=== PATIENT | female | born 1955 | race African-American/Black ===

== ENCOUNTER 2020-02-12 04:50 | Inpatient (IN) ==
[2020-02-12] MEDS ORDERED: NS 1,000 ML ONE (05:15)
[2020-02-12] MEDS ORDERED: NS 1,000 ML IV ONE ×3 (05:30→08:48)
[2020-02-12 05:40] LABS: BE -6.6 mmoll (-3.0-3.0); BLOOD TYPE ARTERIAL; HCO3-(ACT) 19.7 mmoll (20.0-26.0); METHB 0.9 % (0.0-1.5); O2(CT) 16.8 mL/dL (15.0-23.0); O2HB 95.2 % (95.0-99.0); PCO2(98.6) 34 mmHg (35-45); PO2(98.6) 85 mmHg (60-100); SAMPLE BLOOD; SAO2 98.1 % (95.0-100.0); THB 12.5 g/dL (11.5-17.4); pH(98.6) 7.34 (7.35-7.45)
[2020-02-12 05:42] LABS: ALLEN TEST NO; MODALITY ROOM AIR
[2020-02-12 05:58] LABS: BASO# 0.01 X1000 (0.0-0.2); BASO% 0.1 % (0.0-0.8); EOS# 0.03 X1000 (0.0-0.7); EOS% 0.4 % (0.0-10.0); HEMATOCRIT 36.2 % (37.0-47.0); HEMOGLOBIN 11.9 g/dL (12.0-16.0); IMM GRAN# 0.03 X1000 (0.0-0.04); IMM GRAN% 0.4 % (0.0-0.5); LYMPH# 1.23 X1000 (1.2-3.4); LYMPH% 16.8 % (20.5-51.1); MCH 27.9 PG (27-31); MCHC 32.9 g/dL (33-37); MCV 84.8 FL (81-99); MONO# 1.11 X1000 (0.11-0.59); MONO% 15.2 % (1.7-9.3); NEUT# 4.89 X1000 (1.4-6.5); NEUT% 67.1 % (42.2-75.2); PLT 259 X1000 (130-400); RBC 4.27 XMIL (4.2-5.4); RDW 12.8 % (11.5-14.5)
[2020-02-12] MEDS ORDERED: ZOSYN 4.5 GM in NS 100 ML IV ONE (06:06)
[2020-02-12] MEDS ORDERED: TYLENOL PO ONE (06:06)
--- NOTE | 2020-02-12 06:06 | PROVIDER DOCUMENTATION ---
HPI-General Adult - General Chief Complaint: Altered Mental Status Stated Complaint: VOMITING Time Seen by Provider: 02/12/20 05:27 Source: patient Allergies/Adverse Reactions: Patient Allergies Allergy/AdvReac Type Severity Reaction Status Date / Time No Known Allergies Allergy Verified 02/12/20 08:14 Home Medications: Home Medication List Medication Instructions Recorded Confirmed Last Taken Type Glipizide 1 tab PO BID 02/12/20 02/12/20 Unknown History Insulin Glargine,Hum.rec.anlog 13 units SUBQ DAILY 02/12/20 02/12/20 Unknown History [Lantus Solostar] Insulin Lispro [Humalog] 1 unit SUBQ DIRECTED 02/12/20 02/12/20 Unknown History Metformin HCl 1 tab PO BID 02/12/20 02/12/20 Unknown History - History of Present Illness -Gen Adult Nature of Presenting Problems: A 65 y/o female presents with c/o nausea and vomiting. The pt was being triaged, suddenly became weak and diaphoretic. The speech was slurred and had mild deviation of the mouth towards left. Her SBP was in low 90's. Pt denies any CP or SOB or palpitations or tingling or numbness or weakness or change in vision. The pt has had symptoms since 02/06/2020 and was seen in the ED on 02/07/2020. Review of Systems - Adult - REVIEW OF SYSTEMS - ADULT Constitutional: reports: fever Eyes: denies: no symptoms reported Ears, Nose, Mouth & Throat: denies: no symptoms reported Cardiovascular: denies: no symptoms reported Respiratory: denies: no symptoms reported Gastrointestinal: reports: see HPI Genitourinary: denies: no symptoms reported Musculoskeletal: denies: no symptoms reported Integumentary: denies: no symptoms reported Neurological: reports: loss of balance, slurred speech, other Psychiatric: denies: no symptoms reported Endocrine: denies: no symptoms reported Hematologic/Lymphatic: denies: no symptoms reported Allergic/Immunologic: denies: no symptoms reported Past History - Adult - PAST MEDICAL HISTORY-ADULT Review of Records: reports: Old Records Reviewed, Nursing Assessment Review, Medications Reviewed, Social history reviewed & non-contributory. Major Childhood Illnesses: reports: denies history Cardiovascular: reports: HTN, hyperlipidemia Respiratory: reports: denies history Gastrointestinal: reports: denies history Genitourinary: reports: denies history, kidney disease Neurological: reports: denies history Psychiatric: reports: anxiety Endocrine/Immune: reports: Diabetes - PRIOR SURGERIES/PROCEDURES Surgical/Procedure History: reports: BTL - FAMILY HISTORY Family History: reviewed, not pertinent Physical Exam-General - PHYSICAL EXAM-ADULT Initial Vital Signs Reviewed: Yes - CONSTITUTIONAL General Appearance: alert, moderate distress, slow to respond - EYES Eyes: PERRL/EOMI, anisocoria - HEAD, EARS, NOSE, MOUTH & THROAT HENMT: normocephalic/atraumatic. negative: moist mucous membranes, pharyngeal erythema - NECK Neck: supple - RESPIRATORY Respiratory: lungs clear, normal breath sounds, no respiratory distress, no accessory muscle use - CARDIOVASCULAR Cardiovascular: tachycardia, other (radial and DP pulses not palpable.) - GASTROINTESTINAL (ABDOMEN) Abdominal Exam: non tender, soft - MUSCULOSKELETAL Back Exam: normal inspection Extremity: no pedal edema Peripheral Pulses: radial (R): 0, radial (L): 0, carotid (R): 2+, carotid (L): 2+, femoral (R): 2+, femoral (L): 2+, dorsalis-pedis (R): 0, dorsalis-pedis (L): 0 - SKIN Integumentary: normal color, warm/dry - NEUROLOGIC 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 no deviation of tongue. generalized weakness in all extremeties, motor strength 5/5). negative: facial droop, motor weakness, sensory deficit - PSYCHIATRIC Psych/Mental Status: normal mood/affect, anxious Progress - PLAN OF CARE/RESULTS Progress/Plan/Lab Results: Vital Signs - 8 hr 02/12/20 04:51 02/12/20 05:04 Temperature 100.9 F H Pulse Rate 118 H 108 H Respiratory Rate 20 27 H Blood Pressure 92/31 O2 Sat by Pulse Oximetry 100 Laboratory Results - last 24 hr 02/12/20 02/12/20 05:22 05:32 WBC 7.30 RBC 4.27 Hgb 11.9 L Hct 36.2 L MCV 84.8 MCH 27.9 MCHC 32.9 L RDW Std Deviation 12.8 Plt Count 259 MPV 13.0 H Immature Gran % (Auto) 0.4 Neut % (Auto) 67.1 Lymph % (Auto) 16.8 L Florence % (Auto) 15.2 H Eos % (Auto) 0.4 Baso % (Auto) 0.1 Immature Gran # (Auto) 0.03 Neut # (Auto) 4.89 Lymph # (Auto) 1.23 Florence # (Auto) 1.11 H Eos # (Auto) 0.03 Baso # (Auto) 0.01 Specimen Type ARTERIAL Sample Site L BRACHIAL pH 7.34 L pCO2 34 L pO2 85 HCO3 19.7 L Base Excess -6.6 L Oxyhemoglobin 95.2 ABG O2 Sat (Calculated) 16.8 ABG O2 Saturation 98.1 ABG Carboxyhemoglobin 2.10 ABG Methemoglobin 0.9 Max Test NO A-a O2 Difference 22.0 Total Hemoglobin 12.5 Lactate 2.30 H Blood Gas Modality ROOM AIR FiO2 % 21.0 Orders Category Date Time Status Mendoza Cath Insertion ORDERED Care 02/12/20 05:30 Active IV Insertion ORDERED Care 02/12/20 05:30 Completed Intake and Output-Strict ORDERED Care 02/12/20 05:30 Active NEWS Score 2-4:Order NEWS Lactate Series NOW Care 02/12/20 06:03 Active Notify Physician ORDERED Care 02/12/20 05:30 Active Notify Physician if: ORDERED Care 02/12/20 05:30 Active Saline Loc NOW Care 02/12/20 05:32 Active Sepsis Bolus Completion ORDERED Care 02/12/20 05:30 Active Vital Signs Order Q30M Care 02/12/20 05:30 Active CHEST-PORTABLE [RAD] Stat Exams 02/12/20 05:[address] HEAD W/O CONTRAST [CT] Stat Exams 02/12/20 05:33 Taken KUB ABDOMEN [RAD] Stat Exams 02/12/20 06:05 Ordered ABG [RESP] Routine Lab 02/12/20 05:32 Completed BLOOD CULTURE [BLDCUL] Stat Lab 02/12/20 05:45 Ordered CBC WITH DIFF [HEME] Stat Lab 02/12/20 05:22 Completed COMPREHENSIVE METABOLIC PANEL [CHEM] Stat Lab 02/12/20 05:45 Ordered PRO B-NATRIURETIC PEPTIDE Stat Lab 02/12/20 05:45 Ordered TYPE & SCREEN [BBK] Stat Lab 02/12/20 05:46 Ordered UA NIMS W/REFLEX CULT [URINALYSIS] Stat Lab 02/12/20 05:42 Ordered 0.9% Sodium Chloride Inj [Ns] 1,000 ml Med 02/12/20 05:15 Discontinued .ROUTE As directed 0.9% Sodium Chloride Inj [Ns] 1,000 ml Med 02/12/20 05:30 Active IV 999 mls/hr Acetaminophen [Tylenol] Med 02/12/20 06:06 Once 1,000 mg PO NOW ONE Piperacillin/Tazobactam [Zosyn] 4.5 gm Med 02/12/20 06:06 Active 0.9% Sodium Chloride Inj [Ns] 100 ml IV NOW Pulse Oximetry Stat Oth 02/12/20 05:32 Active Result Diagrams: 02/12/20 05:22 02/12/20 05:22 - CHANGE OF SHIFT REPORT (ED Provider) 1 Report Given and Care Transferred to:: Dr Sarkar Time of Transfer: 07:20 Items Pending: Labs Departure - Departure Date of Disposition Decision: 02/12/20 Time of Disposition Decision: 13:06 DIAGNOSIS: Dehydration, severe Disposition: ADMITTED INPATIENT 09 Certified Medical Emergency: Emergent Condition: Serious - Critical Care Note This patient required my direct & personal management of CC.: Yes Total Time (mins): 45 Critical Care Statement: This patient required my direct personal management to treat or rule out processes, the absence of which, could potentiallly result in sudden, clinically significant life or limb threatening deterioration. Attestation - Physician/ CANDIDO Attestation Patient care was provided by Advanced Practice Provider:: No The physician spent face to face time with patient:: Yes Advanced Practice Provider documentation review:: Supervising physician onsite and consulted in the evaluation and care of this patient. The physician did have a face to face encounter with the patient.
[2020-02-12 06:41] LABS: ALBUMIN 3.8 g/dL (3.5-5.0); CALCIUM 9.2 mg/dL (8.8-10.2); CREATININE 4.5 mg/dL (0.5-0.9); POTASSIUM 4.8 mmol/L (3.5-5.1); TOTAL BILIRUBIN 0.3 mg/dL (0.20-1.00); TOTAL PROTEIN 7.4 g/dL (6.3-8.3)
[2020-02-12] MEDS ORDERED: HUMULIN R (PARKWAY) SUBQ ONE (07:09)
--- NOTE | 2020-02-12 07:15 | Diag Imaging Result Doc PS360 ---
CT HEAD W/O CONTRAST - 02/12/2020 INDICATION: altered mental status COMPARISON: None FINDINGS: There is advanced diffuse cerebral atrophy. There is moderate periventricular white matter chronic microvascular ischemia. No intracranial mass or hemorrhage. The skull is intact. The sinuses, mastoids, and middle ears are clear. IMPRESSION: Chronic appearing ischemic changes. No acute process. This exam was performed using automated exposure control, adjustment of mA or kV according to patient size, and/or use of iterative reconstruction technique Electronically signed by Polo Louis 02/12/2020 7:13 AM
[2020-02-12] MEDS ORDERED: ZOFRAN ONE (07:18)
[2020-02-12] MEDS ORDERED: ZOFRAN IV ONE (07:22)
[2020-02-12 07:57] LABS: INFLUENZA A NEGATIVE (NEGATIVE); INFLUENZA B NEGATIVE (NEGATIVE)
[2020-02-12 08:39] LABS: MAGNESIUM 1.8 mg/dL (1.5-2.7); PHOSPHORUS 5.3 mg/dL (2.7-4.5)
--- NOTE | 2020-02-12 08:43 | Diag Imaging Result Doc PS360 ---
KUB ABDOMEN - 02/12/2020 INDICATION: constipation c flank pain x 4 days COMPARISON: None FINDINGS: There is a nonobstructive bowel gas pattern. No free air or abdominal calcifications. Average quantity of stool. IMPRESSION: No acute disease. Electronically signed by Polo Louis 02/12/2020 8:41 AM
--- NOTE | 2020-02-12 08:44 | Diag Imaging Result Doc PS360 ---
CHEST-PORTABLE - 02/12/2020 INDICATION: cough COMPARISON: None FINDINGS: The lungs are normally expanded and clear. Heart size and mediastinal contours are normal. No pneumothorax or pleural effusion. IMPRESSION: Negative exam. Electronically signed by Polo Louis 02/12/2020 8:41 AM
[2020-02-12 08:45] LABS: INR 1.11; PROTIME 14.9 Seconds (11.0-16.0)
[2020-02-12 08:46] LABS: PTT 29.3 Seconds (22.3-41.8)
[2020-02-12] MEDS ORDERED: ZOFRAN IV PRN (09:16)
[2020-02-12] MEDS ORDERED: TYLENOL PO PRN (09:16)
[2020-02-12] MEDS ORDERED: HUMULIN R IV ONE ×2 (09:21→15:56)
[2020-02-12] MEDS ORDERED: LANTUS INSULIN SUBQ SCH (09:30)
[2020-02-12] MEDS ORDERED: HUMULIN R (PARKWAY) ONE (09:32)
[2020-02-12 10:00] LABS: HEMOGLOBIN A1C 8.4 % (4.8-6.0)
--- NOTE | 2020-02-12 10:06 | EKG Report ---
Test Performed on : 02/12/2020 06:35:29 AM Test Reason : AMS Blood Pressure : / mmHG Vent. Rate : 099 BPM Atrial Rate : 099 BPM P-R Int : 130 ms QRS Dur : 080 ms QT Int : 376 ms P-R-T Axes : 042 057 070 degrees QTc Int : 482 ms Normal sinus rhythm. Nonspecific T wave abnormality Abnormal ECG No previous ECGs available Unconfirmed Result
--- NOTE | 2020-02-12 10:25 | HISTORY AND PHYSICAL ---
PRIMARY CARE PROVIDER: None. CHIEF COMPLAINT: Nausea, vomiting, and dizziness. HISTORY OF PRESENT ILLNESS: Ms. Szymanski is a 65-year-old, female, who carries a past medical history of diabetes mellitus, hypertension, and hyperlipidemia, who is noted to take lisinopril and metformin, who was brought to the ED by her niece with complaints of nausea and vomiting. She was seen in the ED on 02/07/2020 and diagnosed with food poisoning, I believe from the [facility]. She reports since that time, her diarrhea has pretty much subsided. However, she has continued to have nausea and vomiting every day, and has continued to take her lisinopril and metformin. When she came in on 02/07/2020, her kidney function was completely normal. She now has an acute kidney injury with a BUN of 79 and a creatinine of 4.5. She was also hyperglycemic in the 460s, hypotensive anywhere from 60s to low 100s. She initially screened in for lactate positive, was treated per the sepsis protocol, given 2 L of fluid, and started on IV Zosyn. Suspected DKA; however, her acetone level is negative. She was given some subcu regular insulin, brought her blood sugars down to the 360s. We will do 5 of IV regular insulin now. Blood pressures still are on the low side, and is currently in Trendelenburg to keep her blood pressures up even after fluid resuscitation. We will be moving her to [facility] ICU for possible pressors. Will set her up to have a renal ultrasound and check renal studies. REVIEW OF SYSTEMS: Complete and negative, except for those mentioned in the HPI. She does report continued nausea and vomiting since 02/07/2020, but no real fever, chills, chest pain, shortness of breath. There was some associated dizziness with her hypotension. I believe initially, they stated she had some slurred speech, and did a head CT, which they contributed to her hypotension. She has had no numbness, tingling, or overt weakness on one side or the other. She was complaining of abdominal pain upon palpitation when first brought into the ED. However, I mashed on her abdomen well, and could not reproduce any tenderness. She reports no more diarrhea since 02/07/2020, and is only able to have a small BM now. SOCIAL HISTORY: She is a . She lives alone. No alcohol, tobacco, or illicit drug use. She does have family who checks on her. PAST MEDICAL HISTORY: Hypertension, diabetes mellitus, hyperlipidemia. PAST SURGICAL HISTORY: Tubal. ALLERGIES: No known drug allergies. HOME MEDICATIONS: Lisinopril and metformin which will be held, glipizide, Humalog per home sliding scale, Lantus, and recently discharged on Lomotil and Compazine. PHYSICAL EXAMINATION: VITAL SIGNS: Temperature was initially 100.9, now down to 97.8, heart rate has been 110s to low 90s, respirations 25, blood pressures have been documented anywhere from 60s to low 100s/30s to 80s, O2 saturation is 98% on 2 L nasal cannula. The patient is currently in Trendelenburg, and blood pressure is still reading 90s/50s. GENERAL: Ms. Szymanski is a 65-year-old, female, who is in Trendelenburg position in the ED stretcher, but in no acute distress. HEENT: Atraumatic, normocephalic. PERRL. NECK: Supple. Trachea midline. CARDIOVASCULAR: S1, S2 appreciated. No murmurs, gallops, rubs noted. RESPIRATORY: Lung sounds are clear bilaterally. GASTROINTESTINAL: Soft, nontender upon palpitation. Positive bowel sounds. LOWER EXTREMITIES: Negative for edema. Bilateral pedal pulses are palpable. No signs of clubbing, cyanosis. SKIN: Warm, dry, and intact. NEUROLOGIC: She is awake. She is alert. She is oriented. She reports that she is feeling much better than when she came in. However, she does believe that she came to the ED over 2 weeks ago, and it was just days ago. She also reported no appetite and a lower fluid intake, but she states that she loves water and drinks it excessively as well, so unsure if she is really back at her baseline. No family currently allowed at the bedside to confer with that. She did have a head CT when she came in that was negative. Did not appreciate any focal deficits other than that. DIAGNOSTIC DATA: Head CT showed chronic ischemic changes. No acute processes. Abdominal x-ray: No acute disease. Chest x-ray: Negative exam. LABORATORY DATA: White count 7, hemoglobin and hematocrit are 11 and 36, platelet count is 259,000. Sodium 126, potassium 4.8, bicarb is 17, anion gap 26, BUN 79, creatinine 4.5, blood glucose is 463, down to 360s. Troponin is 49, not complaining of any chest pain. Acetone level was negative. Initial plasma lactate was 3; recheck after fluids is 1.1. Negative for flu A and B or group A strep. ASSESSMENT AND PLAN: 1. Sepsis rule in, possibly secondary from underlying gastrointestinal issues from food poisoning. She was aggressively intravenously hydrated with 2 liters of fluid, and started on Zosyn. We will continue Zosyn; however, we will renally dose her. Continue to trend her lactate series. Have Levophed ordered for her hypotension. Continue aggressive intravenous hydration. 2. Febrile upon arrival. Subsided with oral Tylenol. 3. Diabetes mellitus with hyperglycemia. She was given subcutaneous regular insulin. Will do also 5 units intravenously now. It only brought her blood glucose down to the 360s. Again, continue with aggressive intravenous hydration. 4. Mild hypernatremia secondary to dehydration. Will continue with intravenous fluids. 5. Acute kidney injury. The patient had normal renal function on 02/07/2020. Will continue with aggressive intravenous hydration. Will check a renal ultrasound. We will hold her lisinopril and metformin that the patient had continued to take on a daily basis. 6. High anion gap metabolic acidosis. Will continue with intravenous fluids. 7. Elevated troponin in the setting of acute renal failure. The patient complains of no chest pain, but we will do an electrocardiogram as one is not documented. 8. Hypertension in the setting of hypotension. Will hold any antihypertensives. Further recommendations to follow physician evaluation, laboratory and diagnostic data. Dictated by ANCA Marin for Geovanny Sellers MD cc: Geovanny Sellers MD
[2020-02-12] MEDS: LEVOPHED 8 MG in D5 1/2 NS 250 ML IV SCH ×2 (10:35→17:46)
[2020-02-12] MEDS ORDERED: HUMALOG (PARKWAY) SUBQ SCH (11:00)
[2020-02-12 15:41] LABS: URINE SOURCE CATH
--- NOTE | 2020-02-12 15:42 | Diag Imaging Result Doc PS360 ---
US RENAL 2 (RETROPER) COMPLETE - 02/12/2020 INDICATION: RASHI TECHNIQUE: COMPARISON: None FINDINGS: There is a lot of bowel gas causing some artifact. There is probably a cyst at the upper pole of the right kidney. The left kidney is normal. No evidence of hydronephrosis. The right kidney measures 8.2 x 3.8 x 4 cm. The left kidney measures 9.4 x 5.5 x 5.9 cm. Urinary bladder is decompressed by a Mendoza catheter. IMPRESSION: No acute abnormality. Electronically signed by Polo Louis 02/12/2020 3:39 PM
[2020-02-12] MEDS ORDERED: FLEET ENEMA PR ONE (15:45)
[2020-02-12 15:50] LABS: BILIRUBIN URINE SMALL (NEGATIVE); BLOOD URINE MODERATE (NEGATIVE); COLOR YELLOW; GLUCOSE URINE NEGATIVE (NEGATIVE); KETONE URINE NEGATIVE (NEGATIVE); LEUKOCYTES URINE SMALL (NEGATIVE); NITRITE URINE NEGATIVE (NEGATIVE); PH URINE 5.5; PROTEIN URINE 100 mg/dL (NEGATIVE); SP GRAVITY URINE 1.025; TURBIDITY URINE HAZY (CLEAR); UR EPITHELIAL CELLS <10 /HPF (<10); URINE BACTERIA NEGATIVE /HPF; URINE WBC 20-40 /HPF (<10); UROBILINOGEN URINE NORMAL (NORMAL)
[2020-02-12] MEDS ORDERED: MAGNESIUM SULFATE 2 GM/S.W.I. 2 GM/50 ML IVPB IV PRN (15:56)
[2020-02-12] MEDS ORDERED: POTASSIUM CHLORIDE 20 MEQ/SWI 20 MEQ/100 ML IVPB IV PRN (15:56)
[2020-02-12] MEDS ORDERED: POTASSIUM CHLORIDE 40 MEQ/SWI 40 MEQ/100 ML IVPB IV PRN (15:56)
[2020-02-12] MEDS ORDERED: D50W SYRINGE IV PRN (15:56)
[2020-02-12] MEDS ORDERED: SODIUM BICARBONATE 8.4% 100 MEQ in STERILE WATER INJ. 500 ML IV PRN (15:56)
[2020-02-12] MEDS ORDERED: SODIUM PHOSPHATE 30 MMOL in D5W 250 ML IV PRN (15:56)
[2020-02-12] MEDS ORDERED: HUMULIN R 100 UNIT in NS 100 ML IV SCH (16:00)
[2020-02-12 16:03] LABS: URINE CASTS NONE SEEN; URINE CRYSTALS NONE SEEN; URINE SMALL ROUND CELLS TRANS PRESENT; URINE YEAST NONE SEEN
[2020-02-12] MEDS: D5 1/2 NS 1,000 ML IV PRN (16:10)
[2020-02-12 16:34] LABS: CALCIUM 8.7 mg/dL (8.8-10.2); CREATININE 4.5 mg/dL (0.5-0.9); MAGNESIUM 1.8 mg/dL (1.5-2.7); PHOSPHORUS 5.5 mg/dL (2.7-4.5); POTASSIUM 5.3 mmol/L (3.5-5.1)
[2020-02-12 16:37] LABS: ALLEN TEST YES; BE -9.9 mmoll (-3.0-3.0); BLOOD TYPE ARTERIAL; HCO3-(ACT) 17.2 mmoll (20.0-26.0); METHB 1.3 % (0.0-1.5); O2(CT) 15.4 mL/dL (15.0-23.0); O2HB 95.9 % (95.0-99.0); PCO2(98.6) 29 mmHg (35-45); PO2(98.6) 92 mmHg (60-100); SAMPLE BLOOD; SAO2 98.4 % (95.0-100.0); THB 11.3 g/dL (11.5-17.4); pH(98.6) 7.32 (7.35-7.45)
[2020-02-12 16:38] LABS: MODALITY CANNULA
--- NOTE | 2020-02-12 16:40 | Diag Imaging Result Doc PS360 ---
CHEST-PORTABLE - 02/12/2020 at 4:31 PM INDICATION: central line placement COMPARISON: 6:07 AM FINDINGS: There is a left subclavian central line in good position. The catheter tip is at the cavoatrial junction. The lungs remain grossly clear. IMPRESSION: Good left central line placement. Electronically signed by Polo Louis 02/12/2020 4:38 PM
--- NOTE | 2020-02-12 17:01 | OPERATIVE NOTE ---
PROCEDURE DATE: 02/12/2020 PREOPERATIVE DIAGNOSES: 1. Diabetic ketoacidosis. 2. Poor peripheral access. POSTOPERATIVE DIAGNOSES: 1. Diabetic ketoacidosis. 2. Poor peripheral access. PROCEDURE PERFORMED: Left subclavian central line placement. ANESTHESIA: Local. INDICATIONS: This female presented with diabetic ketoacidosis. She has poor peripheral access. She has an external jugular vein. Her glucose 400. She is on Levophed with ongoing resuscitation, lactic acidosis, urinary tract infection, and needs better access. DESCRIPTION OF PROCEDURE: Risks, benefits, alternatives were discussed with the patient and she consented to the procedure. Seen preoperatively and surgical site was confirmed. She was placed in the supine position and then in Trendelenburg. Her neck and chest prepped with chlorhexidine solution and draped in usual fashion. After time-out, using bony landmarks, we injected local anesthetic and an 18-gauge needle was advanced and the subclavian vein was accessed on the first pass. Dark, nonpulsatile venous blood was noted on return. The wire threaded easily. It was confirmed to be venous in nature. A skin matthieu was made. The tract was dilated and a pre-flushed triple-lumen 7-Hungarian catheter was advanced and secured with silk suture. All ports withdrew blood and flushed without resistance. A dressing was applied. There was no complication. Stat chest x-ray was ordered. cc: Jacky Valladares MD
[2020-02-12] MEDS: 1/2 NS 1,000 ML IV SCH (17:36)
[2020-02-12] MEDS: ZOSYN 2.25 GM in NS 50 ML IV SCH ×3 (17:41→22:01)
--- NOTE | 2020-02-12 17:58 | HISTORY AND PHYSICAL ---
ADDENDUM: Patient seen and examined by myself. Full note dictated and discussed with nurse practitioner. Patient notes that she has been nauseated, vomiting for the past week or so. She has had great decreased oral intake. Has continued to take her lisinopril and metformin. She has had very little urine output while she has been in the hospital. She initially presented with altered mental status, although this improved with fluid boluses. We are going to admit the patient to the hospital, transfer her to [facility], place her in the unit. Continue to follow her blood pressures. Place her on antibiotics for sepsis. We will hold her lisinopril due to her low blood pressure as well as her acute renal failure. Further orders as needed. cc: Geovanny Sellers MD
[2020-02-12 19:51] LABS: CALCIUM 7.9 mg/dL (8.8-10.2); CREATININE 4.2 mg/dL (0.5-0.9); MAGNESIUM 1.6 mg/dL (1.5-2.7); PHOSPHORUS 4.6 mg/dL (2.7-4.5); POTASSIUM 4.2 mmol/L (3.5-5.1)
[2020-02-12 20:01] LABS: ALLEN TEST YES; BE -8.1 mmoll (-3.0-3.0); BLOOD TYPE ARTERIAL; HCO3-(ACT) 18.6 mmoll (20.0-26.0); METHB 0.7 % (0.0-1.5); O2(CT) 14.8 mL/dL (15.0-23.0); O2HB 97.5 % (95.0-99.0); PCO2(98.6) 31 mmHg (35-45); PO2(98.6) 105 mmHg (60-100); SAMPLE BLOOD; SAO2 100.3 % (95.0-100.0); THB 10.7 g/dL (11.5-17.4); pH(98.6) 7.34 (7.35-7.45)
[2020-02-12 20:02] LABS: MODALITY ROOM AIR
[2020-02-12] MEDS: DULCOLAX PR SCH (21:14)
[2020-02-13] MEDS: 1/2 NS 1,000 ML IV SCH ×4 (00:19→19:02)
[2020-02-13 00:33] LABS: ALLEN TEST YES; BE -7.2 mmoll (-3.0-3.0); BLOOD TYPE ARTERIAL; HCO3-(ACT) 19.2 mmoll (20.0-26.0); METHB 1.4 % (0.0-1.5); O2(CT) 14.4 mL/dL (15.0-23.0); O2HB 93.5 % (95.0-99.0); PCO2(98.6) 34 mmHg (35-45); PO2(98.6) 71 mmHg (60-100); SAMPLE BLOOD; SAO2 96.4 % (95.0-100.0); THB 10.9 g/dL (11.5-17.4); pH(98.6) 7.33 (7.35-7.45)
[2020-02-13 00:34] LABS: MODALITY ROOM AIR
[2020-02-13 00:43] LABS: MAGNESIUM 2.6 mg/dL (1.5-2.7); PHOSPHORUS 3.8 mg/dL (2.7-4.5)
[2020-02-13] MEDS: D5 1/2 NS 1,000 ML IV PRN ×2 (00:43→08:10)
[2020-02-13 00:48] LABS: CREATININE 4.1 mg/dL (0.5-0.9); POTASSIUM 4.3 mmol/L (3.5-5.1)
[2020-02-13 04:32] LABS: ALLEN TEST YES; BE -7.5 mmoll (-3.0-3.0); BLOOD TYPE ARTERIAL; HCO3-(ACT) 19.1 mmoll (20.0-26.0); METHB 1.1 % (0.0-1.5); O2(CT) 10.7 mL/dL (15.0-23.0); O2HB 93.8 % (95.0-99.0); PCO2(98.6) 36 mmHg (35-45); PO2(98.6) 70 mmHg (60-100); SAMPLE BLOOD; SAO2 96.1 % (95.0-100.0); pH(98.6) 7.31 (7.35-7.45)
[2020-02-13 04:33] LABS: MODALITY ROOM AIR
[2020-02-13 05:14] LABS: ALB/GLOB RATIO 0.9; ALBUMIN 2.8 g/dL (3.5-5.0); MAGNESIUM 2.4 mg/dL (1.5-2.7); PHOSPHORUS 3.6 mg/dL (2.7-4.5); POTASSIUM 4.3 mmol/L (3.5-5.1); TOTAL BILIRUBIN 0.2 mg/dL (0.20-1.00); TOTAL PROTEIN 5.8 g/dL (6.3-8.3)
[2020-02-13 05:15] LABS: BASO# 0.03 X1000 (0.0-0.2); BASO% 0.4 % (0.0-0.8); EOS# 0.16 X1000 (0.0-0.7); EOS% 2.3 % (0.0-10.0); HEMATOCRIT 31.7 % (37.0-47.0); HEMOGLOBIN 10.3 g/dL (12.0-16.0); IMM GRAN# 0.11 X1000 (0.0-0.04); IMM GRAN% 1.6 % (0.0-0.5); LYMPH# 1.23 X1000 (1.2-3.4); LYMPH% 17.5 % (20.5-51.1); MCH 27.6 PG (27-31); MCHC 32.5 g/dL (33-37); MONO# 1.23 X1000 (0.11-0.59); MONO% 17.5 % (1.7-9.3); MPV 12.1 FL (7.4-10.4); NEUT# 4.28 X1000 (1.4-6.5); NEUT% 60.7 % (42.2-75.2); PLT 231 X1000 (130-400); RBC 3.73 XMIL (4.2-5.4); RDW 13.2 % (11.5-14.5); WBC 7.04 X1000 (4.8-10.8)
[2020-02-13 05:29] LABS: BANDS 2 % (0-1); EOS 2 % (1-10); LYMPHS 18 % (21-51); MONO 10 % (1-9); NRBC 1 % (0-0); SEGS 46 % (42-75)
[2020-02-13] MEDS: ZOSYN 2.25 GM in NS 50 ML IV SCH ×2 (06:23→14:44)
--- NOTE | 2020-02-13 06:42 | Diag Imaging Result Doc PS360 ---
CHEST-PORTABLE - 02/13/2020 INDICATION: DKA COMPARISON: 02/12/2020 FINDINGS: Stable left central line. There is new, moderately extensive bilateral perihilar infiltrate. This is mainly interstitial in appearance. Heart size remains normal. Lung volumes are low. IMPRESSION: Bilateral central infiltrates compatible with pulmonary edema or pneumonia. Electronically signed by Polo Louis 02/13/2020 6:39 AM
--- NOTE | 2020-02-13 07:08 | EKG Report ---
Test Performed on : 02/13/2020 06:48:40 AM Test Reason : follow up Blood Pressure : / mmHG Vent. Rate : 100 BPM Atrial Rate : 100 BPM P-R Int : 140 ms QRS Dur : 080 ms QT Int : 334 ms P-R-T Axes : 047 055 030 degrees QTc Int : 430 ms Normal sinus rhythm. Nonspecific T wave abnormality Abnormal ECG When compared with ECG of 12-FEB-2020 06:35, (Unconfirmed) Nonspecific T wave abnormality now evident in Inferior leads Confirmed by Jose Luis Deng MD ([id number]) on 02/15/2020 3:20:50 PM
[2020-02-13] MEDS ORDERED: VANCOMYCIN IV PER PHARMACY MISC SCH (07:15)
--- NOTE | 2020-02-13 07:47 | Diag Imaging Result Doc PS360 ---
EXAM: ABDOMEN FLAT/UPRIGHT 02/13/2020 HISTORY: pain TECHNIQUE: Flat and upright abdomen COMMENT: There is some colonic gas. There are at least two distended loops of small bowel seen on the right side of the abdomen. This was also apparently present on the previous study of 02/12/2020. The stomach is not distended and there is no evidence organomegaly or mass. IMPRESSION: Ileus versus partial small bowel obstruction. Electronically signed by Howard Chacon 02/13/2020 7:45 AM
[2020-02-13] MEDS: ZYVOX 600 MG/D5W 600 MG/300 ML IVPB IV SCH ×2 (08:07→20:04)
[2020-02-13 08:08] LABS: MAGNESIUM 2.4 mg/dL (1.5-2.7); PHOSPHORUS 3.5 mg/dL (2.7-4.5)
[2020-02-13] MEDS: DULCOLAX PR SCH ×2 (08:10→20:04)
[2020-02-13 08:15] LABS: CALCIUM 8.1 mg/dL (8.8-10.2); CREATININE 3.4 mg/dL (0.5-0.9); POTASSIUM 4.5 mmol/L (3.5-5.1)
[2020-02-13 09:19] LABS: URINE SOURCE CATH
[2020-02-13 09:38] LABS: BILIRUBIN URINE NEGATIVE (NEGATIVE); BLOOD URINE SMALL (NEGATIVE); COLOR YELLOW; GLUCOSE URINE NEGATIVE (NEGATIVE); KETONE URINE NEGATIVE (NEGATIVE); LEUKOCYTES URINE NEGATIVE (NEGATIVE); NITRITE URINE NEGATIVE (NEGATIVE); PROTEIN URINE 30 mg/dL (NEGATIVE); SP GRAVITY URINE 1.011; TURBIDITY URINE CLEAR (CLEAR); UROBILINOGEN URINE NORMAL (NORMAL)
[2020-02-13 09:41] LABS: UR CREAT RANDOM 48.4 mg/dL (11-20); UR PROT RANDOM 28.7 mg/dL
[2020-02-13 09:43] LABS: UR EPITHELIAL CELLS <10 /HPF (<10); URINE BACTERIA NEGATIVE /HPF; URINE WBC <10 /HPF (<10)
[2020-02-13 09:51] LABS: URINE YEAST NONE SEEN
[2020-02-13] MEDS ORDERED: LANTUS INSULIN SUBQ SCH (11:10)
--- NOTE | 2020-02-13 11:18 | PROGRESS NOTE ---
DATE: 02/13/2020 SUBJECTIVE: The patient seems to be feeling better compared with yesterday, but her anion gap is still elevated. Her kidney function is still elevated as well, but seems to be improving a little bit; she seems to be making a little bit more of urine. I ordered a renal ultrasound, as well as urinalysis, and I have requested an evaluation by Urology Department. I will continue with the DKA protocol. Abdomen x-ray showed ileus versus partial small bowel obstruction. She had a bowel movement yesterday. I gave her an enema today, and also I started this patient on suppositories twice a day. I will continue with that. She does have some bowel sounds, but decreased. OBJECTIVE: Vital signs: Temperature 98.0 degrees, pulse 95, respiratory rate 25, blood pressure 111/63, oxygen saturation 97% on room air. HEENT: Head normocephalic, no trauma. PERRLA. Neck: Neck is supple. No JVD. No masses. Central trachea. Chest: She does have some rhonchi at the bases, no crackles, no rales. Abdomen: Soft, protuberant, distended. Decreased bowel sounds, but present. Extremities: No edema, no clubbing, no cyanosis. Neurological examination: The patient is awake, alert. She is answering my questions. LABORATORY: WBC 7, hemoglobin 10.3, hematocrit 31.7, platelet 231. Sodium 133, potassium 4.3, chloride 100, bicarbonate 16. BUN 73, calcium 8, phosphorus 3.6, magnesium 2.4, albumin 2.8. ASSESSMENT AND PLAN: 1. Sepsis, likely secondary to bilateral pneumonia and/or underlying gastrointestinal infection. This patient has been constipated. She may have an ileus versus partial bowel obstruction. She had a bowel movement yesterday after giving her an enema. We will continue with suppositories twice a day; she is still on vasopressors. Continue with broad-spectrum antibiotics. 2. Bilateral lower lobe pneumonia. Continue with broad-spectrum antibiotics. 3. Type 2 diabetes with a hemoglobin A1c of 8.4. I will continue with diabetic ketoacidosis protocol at this moment. 4. Diabetic ketoacidosis. I do believe this is getting better, but the anion gap is still elevated. Her acetone level was negative yesterday, though. So I will go ahead and stop the insulin drip. I will put her on a sliding scale insulin and pattern of blood sugar. She is not able to eat, so I will monitor this closely. 5. Hyponatremia, much better. Initially she was admitted with a blood sugar of 126 and now is 135. It could be related to dehydration and pseudohyponatremia due to elevated blood sugar. 6. Partial small bowel obstruction versus ileus. She does have mild bowel sounds, and she had a bowel movement yesterday. I will continue with the same management and I will keep an eye on her. She has been having vomiting, though. 7. Anion gap metabolic acidosis. Continue with intravenous fluids. 8. Hypertension. Actually, this patient has been hypotensive and she has been on vasopressors. cc: José Antonio Cote MD
[2020-02-13] MEDS: HUMULIN R SUBQ SCH ×2 (18:00→20:04)
--- NOTE | 2020-02-13 18:05 | GENERAL SURGERY CONSULTATION ---
DATE: 02/13/2020 REASON FOR CONSULTATION: Possible bowel obstruction. HISTORY OF PRESENT ILLNESS: This is a 65-year-old female known to me who presented with diabetic ketoacidosis. She has had a history of this. I placed a central line in her yesterday for IV access. I now formally consulted today to make recommendations in regard to a possible bowel obstruction. She did present with nausea and vomiting, which has been persistent over the last couple of days. She has had some constipation. She initially attributed this to food poisoning from the [facility]. She was hydrated and started on the diabetic ketoacidosis protocol yesterday and has felt some better over the course of the day today. She had several bowel movements this morning. PAST MEDICAL HISTORY: Hypertension, diabetes poorly controlled, hyperlipidemia. SURGICAL HISTORY: She has had a tubal ligation but no other abdominal surgery. SOCIAL HISTORY: No tobacco, alcohol, or drugs. She is a but does have attentive family. REVIEW OF SYSTEMS: Ten-point review performed and negative, other than what is mentioned in the HPI. MEDICATIONS: Reviewed. PHYSICAL EXAMINATION: Vital signs: She is currently afebrile. Heart rate in the low 100s. Blood pressure 119/69. General: She is alert in no acute distress. HEENT: No scleral icterus. No cervical mass. Cardiovascular: Normal rate. Pulmonary: No increased work of breathing. Abdomen: Soft, less distended than yesterday, nontender. Integument: Warm and dry. Psychiatric: Appropriate affect. Neurologic: Generalized weakness but no gross deficits. Peripheral vascular: She does have a left subclavian port. Lymphatic: No cervical adenopathy. LABORATORY DATA: White count 7, hematocrit 31. I have reviewed her ABG. She has a base deficit of 7.5. This improved from yesterday. Creatinine is 4.0. LFTs were normal yesterday and today. Lactate was 2.8 yesterday. Urinalysis was positive for leukocytes. Flu A and B were negative. I reviewed an abdominal x-ray that she had done today. It does show several dilated loops of small bowel with no free air. ASSESSMENT AND PLAN: This is a 65-year-old female with nausea and vomiting. This is resolved. She has had return of bowel function today. I suspect that this is more of an ileus related to her other medical issues. I would recommend continued correction of her acidosis as current with repletion of electrolytes as needed with goal magnesium greater than 2, potassium greater than 4. Once more stable clinically, it may be reasonable to get an abdominal ultrasound, but given her benign exam and her improvement in her symptoms, I think we can hold off on this. If she were to continue vomiting, I would recommend nasogastric tube but would continue strict bowel rest at this juncture. cc: Jacky Valladares MD MTDD
[2020-02-13 18:51] LABS: CALCIUM 8.3 mg/dL (8.8-10.2); CREATININE 2.5 mg/dL (0.5-0.9); POTASSIUM 4.1 mmol/L (3.5-5.1)
[2020-02-14] MEDS: 1/2 NS 1,000 ML IV SCH ×2 (01:16→16:21)
[2020-02-14] MEDS: ZOSYN 2.25 GM in NS 50 ML IV SCH ×4 (01:16→23:41)
[2020-02-14 04:58] LABS: ALLEN TEST YES; BLOOD TYPE ARTERIAL; METHB 1.7 % (0.0-1.5); O2(CT) 14.9 mL/dL (15.0-23.0); O2HB 95.3 % (95.0-99.0); PCO2(98.6) 35 mmHg (35-45); PO2(98.6) 91 mmHg (60-100); SAMPLE BLOOD; SAO2 98.2 % (95.0-100.0); pH(98.6) 7.36 (7.35-7.45)
[2020-02-14 04:59] LABS: MODALITY ROOM AIR
[2020-02-14] MEDS ORDERED: D50W SYRINGE IV PRN (06:16)
[2020-02-14 06:17] LABS: BASO# 0.03 X1000 (0.0-0.2); BASO% 0.4 % (0.0-0.8); EOS# 0.19 X1000 (0.0-0.7); EOS% 2.7 % (0.0-10.0); HEMATOCRIT 29.3 % (37.0-47.0); HEMOGLOBIN 9.5 g/dL (12.0-16.0); IMM GRAN# 0.26 X1000 (0.0-0.04); IMM GRAN% 3.7 % (0.0-0.5); LYMPH# 1.88 X1000 (1.2-3.4); LYMPH% 27.1 % (20.5-51.1); MCH 27.4 PG (27-31); MCHC 32.4 g/dL (33-37); MCV 84.4 FL (81-99); MONO% 14.4 % (1.7-9.3); MPV 12.6 FL (7.4-10.4); NEUT# 3.59 X1000 (1.4-6.5); NEUT% 51.7 % (42.2-75.2); PLT 213 X1000 (130-400); RBC 3.47 XMIL (4.2-5.4); RDW 13.3 % (11.5-14.5); WBC 6.95 X1000 (4.8-10.8)
[2020-02-14] MEDS: HUMULIN R SUBQ SCH ×4 (06:17→20:44)
[2020-02-14 06:41] LABS: CALCIUM 8.6 mg/dL (8.8-10.2); CREATININE 1.7 mg/dL (0.5-0.9); POTASSIUM 3.8 mmol/L (3.5-5.1)
[2020-02-14] MEDS: ZYVOX 600 MG/D5W 600 MG/300 ML IVPB IV SCH ×2 (08:13→20:43)
[2020-02-14] MEDS: DULCOLAX PR SCH ×2 (08:29→20:44)
--- NOTE | 2020-02-14 08:56 | GENERAL SURGERY PROGRESS NOTE ---
DATE: 02/14/2020 SUBJECTIVE: No further vomiting. She is having bowel movements. No fevers. OBJECTIVE: Vital signs: Pulse has been in the 90s, blood pressure 105/75. General: She is alert. Cardiovascular: Normal rate. Abdomen: Soft, less distended, nontender. LABORATORY: I reviewed her labs. White count 6, hematocrit is 29. Her acidosis continues to improve. Her creatinine is down to 1.7. Glucoses are better. ASSESSMENT AND PLAN: A 65-year-old female with diabetic ketoacidosis and ileus. It is okay to give her clear liquids today and gradually advance in the next 24 to 48 hours. We will follow along. cc: Jacky Valladares MD
[2020-02-14] MEDS ORDERED: BLISTEX MEDICATED BERRY LIP BALM TOP PRN (09:11)
--- NOTE | 2020-02-14 11:55 | PROGRESS NOTE ---
DATE: 02/14/2020 SUBJECTIVE: The patient seems to be feeling better. She is no longer having nausea or vomiting so we will go ahead and start this patient on a liquid diet. She is having some bowel movements. Surgery Department on board. Likely, this patient had an ileus. OBJECTIVE: Vital Signs: Temperature 98.3 degrees, pulse 94, respiratory rate 26, blood pressure 92/61, and oxygen saturation 97% on room air. HEENT: Head normocephalic. No trauma. PERRLA. Neck: Supple. No JVD. No masses. Central trachea. Lungs: She has some rhonchi at the bases. No crackles. No rales. Abdomen: Soft, protuberant. Decreased bowel sounds but present. Extremities: No edema. No clubbing. No cyanosis. Neurological: The patient is awake and alert. She is answering my questions. LABORATORY: WBC 6.9, hemoglobin 9.5, hematocrit 29.3, and platelets 213,000. Sodium 141, potassium 3.8, chloride 108, bicarbonate 19, BUN 44, creatinine 1.7, glucose 54, and calcium 8.6. ASSESSMENT AND PLAN: 1. Sepsis likely secondary to bilateral lower lobe pneumonia and/or underlying gastrointestinal infection. Patient likely has an ileus that is getting better. Surgery on board. Continue with same management. I think she is improving. She is no longer on pressors. 2. Bilateral lower lobe pneumonia. Continue with broad spectrum antibiotics. 3. Type 2 diabetes with hemoglobin A1c of 8.4. Continue with the same management. She is having some episodes of hypoglycemia so I will go ahead, and stop the long-acting insulin and just continue with sliding scale insulin and pattern blood sugar. 4. Uncontrolled diabetes. This patient's anion gap was elevated, probably a combination of high blood sugar, and acute kidney injury. Her acetone level was negative at the beginning so diabetes has been ruled out. 5. Hyponatremia, likely secondary to pseudohyponatremia due to elevated high blood sugar. 6. Partial small bowel obstruction versus ileus, this is getting better. I will start this patient on a liquid diet today. 7. Anion gap metabolic acidosis. Continue with IV fluids. This basically resolved, the gap is a little bit elevated, likely due to acute kidney injury, which is getting better as well. 8. Hypertension. Actually, this patient has been hypotensive and she has been on pressors. We have stopped the pressor since yesterday. We will monitor. 9. Generalized weakness. I have requested Physical Therapy to evaluate this patient. TIME SPENT: Critical Care time 32 minutes. cc: José Antonio Cote MD
[2020-02-14 19:48] LABS: CALCIUM 8.4 mg/dL (8.8-10.2); CREATININE 1.3 mg/dL (0.5-0.9); POTASSIUM 3.9 mmol/L (3.5-5.1)
[2020-02-15] MEDS: ZOSYN 2.25 GM in NS 50 ML IV SCH (06:05)
[2020-02-15] MEDS: HUMULIN R SUBQ SCH ×4 (06:05→21:25)
[2020-02-15 07:22] LABS: CALCIUM 8.9 mg/dL (8.8-10.2); CREATININE 1.1 mg/dL (0.5-0.9); POTASSIUM 3.8 mmol/L (3.5-5.1)
[2020-02-15] MEDS: 1/2 NS 1,000 ML IV SCH (08:02)
[2020-02-15] MEDS: DULCOLAX PR SCH ×2 (08:15→08:17)
[2020-02-15] MEDS: LEVAQUIN 750 MG/D5W 750 MG/150 ML IVPB IV SCH (08:15)
--- NOTE | 2020-02-15 08:47 | PROGRESS NOTE ---
DATE: 02/15/2020 SUBJECTIVE: This patient states that she is feeling better. Blood culture came back positive with Staphylococcus hominis x2, that is sensitive to levofloxacin. So, I will go ahead and stop Zosyn and Zyvox, and put her on levofloxacin. She is tolerating p.o. and she is having bowel movements. It looks like her ileus resolved. I will advance her diet to a soft GI diet for a diabetic patient. I think she is stable to be transferred to the floor. Her acute kidney injury is getting better. OBJECTIVE: Vital Signs: Temperature 98.2 degrees, pulse 94, respiratory rate 21, blood pressure 132/82, oxygen saturation 99 on room air. HEENT: Head normocephalic, no trauma. PERRLA. Neck: Supple. No JVD. No masses. Central trachea. Chest: Some rhonchi at the bases. No crackles. Abdomen: Soft, protuberant. Positive bowel sounds. She does have some discomfort around the periumbilical area. Extremities: No edema, no clubbing, no cyanosis. Neurological examination: Patient is awake, alert. She is answering my questions. LABORATORY: Sodium 141, potassium 3.8, chloride 106, bicarbonate 20. BUN 19, creatinine 1.1, glucose 212, calcium 8.9. ASSESSMENT AND PLAN: 1. Sepsis. This patient is bacteremic with Staphylococcus hominis. She probably has lower lobe lower lobe pneumonia and also underlying gastrointestinal infection, which is getting better. Surgery on board because of her ileus. Continue with the same management. I will stop the Zosyn and Zyvox. I will put her on levofloxacin. 2. Bilateral lower lobe pneumonia as above. 3. A Staphylococcus hominis bacteremia sensitive to levofloxacin. I will repeat the blood culture and, if this is negative in 2 days, likely she can be discharged home and take medication by mouth, levofloxacin. 4. Type 2 diabetes with hemoglobin A1c of 8.4. Aware. Seems to be stable. 5. Hyponatremia likely secondary to pseudohyponatremia due to high blood sugar. 6. Partial small bowel obstruction versus ileus, resolving. 7. Anion gap metabolic acidosis. Continue with the same management. This is getting much better. 8. Acute kidney injury, getting better. She is making good urine. Continue with same management. 9. Possible upper gastrointestinal bleed. As per the patient, she is having melena. I will ask for occult blood in the stool, and I will monitor her hemoglobin and hematocrit. I will put her on Protonix twice a day by mouth. 10. Hypertension, actually this patient has been stable. I will monitor for now. No changes. cc: José Antonio Cote MD
[2020-02-15] MEDS: PROTONIX PO SCH ×2 (10:31→21:24)
--- NOTE | 2020-02-15 11:07 | GENERAL SURGERY PROGRESS NOTE ---
DATE: 02/15/2020 SUBJECTIVE: Bowels are working. She is tolerating a diet. No fevers. Low-grade tachycardia. Blood pressure 150/85. Her labs are pending this morning, but her acidosis was improving yesterday. Renal function is near normal. ASSESSMENT AND PLAN: A 65-year-old female with ileus and diabetic ketoacidosis. Will continue current management. We can advance her diet as tolerated up to gastrointestinal soft. Would continue bowel stimulation from below and correcting electrolytes. cc: Jacky Valladares MD
[2020-02-15 19:56] LABS: AGAP 15; BUN 12 mg/dL (8-22); CALCIUM 9.2 mg/dL (8.8-10.2); CHLORIDE 105 mmol/L (98-107); COSMO 282; ESTIMATED GFR > 60; GLUCOSE 112 mg/dL (70-104); SODIUM 141 mmol/L (136-145); TCO2 21 mmol/L (25-35)
[2020-02-16] MEDS: 1/2 NS 1,000 ML IV SCH ×2 (05:49→17:22)
[2020-02-16] MEDS: HUMULIN R SUBQ SCH ×4 (06:27→21:02)
[2020-02-16 07:46] LABS: AGAP 17; BUN 8 mg/dL (8-22); CALCIUM 8.6 mg/dL (8.8-10.2); CHLORIDE 103 mmol/L (98-107); COSMO 285; CREATININE 0.9 mg/dL (0.5-0.9); ESTIMATED GFR > 60; GLUCOSE 201 mg/dL (70-104); POTASSIUM 3.6 mmol/L (3.5-5.1); SODIUM 141 mmol/L (136-145); TCO2 21 mmol/L (25-35)
[2020-02-16] MEDS: PROTONIX PO SCH ×2 (08:50→21:02)
[2020-02-16] MEDS: LEVAQUIN 750 MG/D5W 750 MG/150 ML IVPB IV SCH (08:50)
[2020-02-16] MEDS: DULCOLAX PR SCH (08:51)
--- NOTE | 2020-02-16 12:24 | PROGRESS NOTE ---
DATE: 02/16/2020 SUBJECTIVE: The patient seems to be doing better today. She has a positive blood culture that showed Staphylococcus hominis that is sensitive to levofloxacin so I will continue with that. Today, I have repeated the blood culture. Hopefully, in a couple of days, if the blood culture is negative, she can be discharged. OBJECTIVE: Vital Signs: Temperature 98.3 degrees, pulse 99, respiratory rate 18, blood pressure 145/81, oxygen saturation 100% on room air. HEENT: Head normocephalic. No trauma. PERRLA. Neck: Supple. No JVD. No masses. Central trachea. Chest: Some rhonchi at the bases. No crackles. Abdomen: Soft, protuberant, nontender, nondistended. Some discomfort at the level of the periumbilical area. Extremities: No edema, no clubbing, no cyanosis. Neurological Examination: The patient is awake and alert. She is oriented. She is answering my questions. Laboratory: Sodium 141, potassium 3.6, chloride 103, bicarbonate 21, BUN 8, creatinine 0.9, glucose 201, calcium 8.6. ASSESSMENT AND PLAN: 1. Sepsis. This patient is bacteremic with Staphylococcus hominis. She probably has left lower lobe pneumonia and also an underlying gastrointestinal infection, which are getting better. Surgery department on board due to her ileus, which has resolved. 2. Bilateral lower lobe pneumonia. Continue with antibiotics. I have placed this patient on levofloxacin. 3. Staphylococcus hominis bacteremia, sensitive to levofloxacin. I repeated the blood culture today. If this is negative in a couple of days, hopefully, this patient can be discharged. 4. Type 2 diabetes with a hemoglobin A1c of 8.4, seems to be stable. 5. Hyponatremia, likely secondary to pseudohyponatremia due to high blood sugar. Aware. 6. Anion gap metabolic acidosis, likely due to her acute kidney injury, which has resolved. We believed at the beginning that this patient probably had diabetic ketoacidosis but her acetone level was negative. 7. Partial small bowel obstruction versus ileus, resolved. 8. Acute kidney injury, resolved. I will remove the Mendoza catheter today. 9. Possible upper gastrointestinal bleed with a positive Hemoccult. I will ask the gastroenterology department to evaluate this patient. Continue with Protonix twice a day. 10. Hypertension, stable. Continue with the same management. cc: José Antonio Cote MD
--- NOTE | 2020-02-16 12:28 | GENERAL SURGERY PROGRESS NOTE ---
DATE: 02/16/2020 SUBJECTIVE: Continues to have bowel function. No nausea or vomiting. OBJECTIVE: Heart rate is in the low 100s. No fevers. Blood pressure 130/72. General: She is alert. Ambulating in the room. Cardiovascular: Low-grade sinus tachycardia. Abdomen is soft, nontender, nondistended. Labs: Creatinine 0.9. Her base deficit is improving. Potassium is 3.6, glucose remained at 200. ASSESSMENT/PLAN: A 65-year-old female with ileus related to diabetic ketoacidosis. This seems to be resolving. Would advance her diet as tolerated and nutritional support. Otherwise, call with any question or concerns. cc: Jacky Valladares MD
--- NOTE | 2020-02-16 15:59 | GASTROENTEROLOGY CONSULTATION ---
DATE: 02/16/2020 REASON FOR CONSULTATION: Hemoccult-positive stool, anemia. HISTORY OF PRESENT ILLNESS: This is a 65-year-old, -[place] female who was admitted to the hospital on 02/12/2020. She had come into the emergency room on 02/07/2020 with nausea, vomiting, diarrhea felt to be related to food poisoning after eating at a buffet at [facility]. Symptoms worsened. She came back into the hospital and had findings of hyperglycemia and had been treated for DKA, also findings positive for sepsis. The patient was treated. She is currently on the medical floor now. The patient has had a slight drop in her hemoglobin and hematocrit. A Hemoccult test was done and that was positive. The patient states she has recently moved back here last year from [place]. She states she was originally from here in [place]. She had nausea and vomiting prior to admission. She had findings of decreased urine output, altered mental status, and treated for sepsis. Blood cultures had shown Staphylococcus hominis in the blood. The patient currently is feeling better. She is denying any active GI bleeding. She did have a documented tarry stool several days ago. Other than that, intake and output report shows brown-colored stool. The patient states she is not sure when she has had a colonoscopy. PAST MEDICAL HISTORY: Diabetes, hypertension, hyperlipidemia. PAST SURGICAL HISTORY: Tubal ligation. ALLERGIES: No known drug allergies. HOME MEDICATIONS: Glipizide 1 tablet twice a day, Lantus 13 units every day, insulin Humalog subcutaneously as directed, metformin 1 tablet twice a day. SOCIAL HISTORY: She is a . She lives alone. Recently moved back here from [place]. No reported tobacco or alcohol use. Her sister had and left her house to her. PHYSICAL EXAMINATION: Vital Signs: Temperature 98.1 degrees, pulse 108, respirations 18, blood pressure 136/80. General: The patient is awake and alert, in no acute distress. Other physical exam unremarkable. LABORATORY DATA: Hematology: WBC 6.95, hemoglobin 9.5, hematocrit 29.3, platelets 213,000. Chemistry: Sodium 141, potassium 3.6, chloride 103, CO2 of 21, BUN 8, creatinine 0.9, glucose 101, calcium 8.6. IMAGING STUDIES: Abdominal x-ray on 02/13/2020 showed ileus versus partial small bowel obstruction. Patient is having bowel movements now. No reported nausea or vomiting now. She has tolerated some of her diet. ASSESSMENT AND PLAN: 1. Sepsis, positive for Staphylococcus hominis. Continuing on current management. 2. Pneumonia. Continuing on respiratory management and antibiotics. 3. Recent diabetic ketoacidosis, type 2 diabetes. Continue current management. 4. Ileus versus partial small bowel obstruction, has resolved. 5. Hemoccult-positive stool with mild anemia. The patient had one documented dark tarry stool. We will continue proton pump inhibitor twice daily. Monitor hemoglobin and hematocrit. Monitor for any signs of active bleeding. Currently would not proceed with endoscopy at this time unless her hemoglobin and hematocrit drop or she has active bleeding. Endoscopy would be for therapeutic purposes only at the present time. Would recommend she follow up as an outpatient once her other medical issues have improved and we can proceed with further workup. I have given her contact information to call the office to set up outpatient procedures. Patient voices understanding. We will continue to follow. Patient was also seen by Dr. Holloway. Thank you for this consultation. Dictated by ANCA Riggs for Juan Carlos Holloway MD cc: ANCA Fong MD [facility]
[2020-02-16] MEDS: GLUCOTROL PO SCH (21:01)
--- NOTE | 2020-02-17 06:06 | Diag Imaging Result Doc PS360 ---
EXAM: CHEST-PORTABLE HISTORY: dyspnea TECHNIQUE: Single view COMPARISON: 02/13/2020 FINDINGS: Poor inspiratory effort. The heart is not enlarged. No pulmonary edema. There are infiltrates in the left lower lobe. Overall the lung infiltrates are less prominent. No pleural effusions identified. No change in the left subclavian line. IMPRESSION: Interval improvement Electronically signed by Prasanna Edmond 02/17/2020 6:04 AM
[2020-02-17] MEDS: HUMULIN R SUBQ SCH ×4 (06:12→21:12)
[2020-02-17 07:06] LABS: BASO# 0.16 X1000 (0.0-0.2); BASO% 1.1 % (0.0-0.8); EOS# 0.33 X1000 (0.0-0.7); EOS% 2.3 % (0.0-10.0); HEMATOCRIT 30.3 % (37.0-47.0); HEMOGLOBIN 9.5 g/dL (12.0-16.0); IMM GRAN# 1.37 X1000 (0.0-0.04); IMM GRAN% 9.7 % (0.0-0.5); LYMPH# 3.34 X1000 (1.2-3.4); LYMPH% 23.6 % (20.5-51.1); MCH 27.3 PG (27-31); MCHC 31.4 g/dL (33-37); MCV 87.1 FL (81-99); MONO# 1.32 X1000 (0.11-0.59); MONO% 9.3 % (1.7-9.3); MPV 10.9 FL (7.4-10.4); NEUT# 7.65 X1000 (1.4-6.5); PLT 238 X1000 (130-400); RBC 3.48 XMIL (4.2-5.4); RDW 13.9 % (11.5-14.5); WBC 14.17 X1000 (4.8-10.8)
[2020-02-17 07:41] LABS: AGAP 14; BUN 5 mg/dL (8-22); CALCIUM 8.7 mg/dL (8.8-10.2); CHLORIDE 105 mmol/L (98-107); COSMO 284; CREATININE 0.7 mg/dL (0.5-0.9); ESTIMATED GFR > 60; GLUCOSE 194 mg/dL (70-104); MAGNESIUM 1.1 mg/dL (1.5-2.7); PHOSPHORUS 3.3 mg/dL (2.7-4.5); POTASSIUM 3.8 mmol/L (3.5-5.1); SODIUM 141 mmol/L (136-145); TCO2 22 mmol/L (25-35)
[2020-02-17] MEDS: LEVAQUIN 750 MG/D5W 750 MG/150 ML IVPB IV SCH (08:11)
[2020-02-17] MEDS: DULCOLAX PR SCH (08:12)
[2020-02-17] MEDS: PROTONIX PO SCH ×2 (08:13→21:11)
[2020-02-17] MEDS: GLUCOTROL PO SCH ×2 (08:13→21:11)
--- NOTE | 2020-02-17 14:58 | PROGRESS NOTE ---
DATE: 02/17/2020 SUBJECTIVE: The patient reports feeling fine. Denies any complaints at this time. OBJECTIVE: Vital Signs: Temperature 97.9 degrees, heart rate 103, respiratory rate 20, blood pressure 133/91, O2 saturation 100% on room air. General examination: This is a 65-year-old, female, lying in bed in no acute distress. Cardiovascular exam: S1, S2 heard. No murmurs, gallops, or rubs. Regular rate and rhythm. Respiratory exam: Minimal rhonchi noted in both bases. Patient not using any accessory muscles or having work of breathing. Abdomen: Soft, nontender to palpation. Bowel sounds present. No organomegaly. Extremities: No clubbing, cyanosis or edema. Peripheral pulses present in both legs. Neurological exam: Patient is alert and oriented x3. Moves 4 extremities. LABORATORY DATA: White cell count 14.17, hemoglobin 9.5, hematocrit 30.3, platelets 238 with normal BMP. ASSESSMENT AND PLAN: 1. Sepsis secondary to Staphylococcus hominis. The patient has also left lower lobe pneumonia. Patient currently is on antibiotic; in this case, she is on levofloxacin. We are going to continue with the same management. 2. Staphylococcus hominis bacteremia. If tomorrow blood culture is negative, then we will discharge this patient home. 3. Diabetes mellitus type 2. We will continue with sliding scale insulin. Accu-Chek before meals and also at bedtime. 4. Hyponatremia, likely secondary to serial hyponatremia due to high blood sugar. Aware. That condition is completely resolved. 5. Partial small bowel obstruction versus ileus, resolved. 6. Acute kidney injury. That is completely resolved. 7. Possible gastrointestinal bleeding. The patient is currently evaluated by Gastroenterology. They want to proceed with endoscopy at this time unless there are signs of active bleeding. We will continue to monitor. 8. Disposition: I think if blood culture remains negative, we will discharge this patient home with 2 weeks of Levaquin. cc: Nguyễn Crabtree MD
[2020-02-17] MEDS: 1/2 NS 1,000 ML IV SCH ×2 (16:51→21:11)
[2020-02-18] MEDS: 1/2 NS 1,000 ML IV SCH ×2 (02:18→11:38)
[2020-02-18 03:18] VITALS: BP 114/72
[2020-02-18] MEDS: HUMULIN R SUBQ SCH ×2 (06:04→11:11)
[2020-02-18] MEDS: DULCOLAX PR SCH (09:00)
[2020-02-18] MEDS: GLUCOTROL PO SCH (09:03)
[2020-02-18] MEDS: PROTONIX PO SCH (09:03)
[2020-02-18] MEDS: LEVAQUIN 750 MG/D5W 750 MG/150 ML IVPB IV SCH (09:03)
--- NOTE | 2020-02-18 17:18 | DISCHARGE SUMMARY ---
ADMISSION DATE: 02/14/2020 DISCHARGE DATE: 02/18/2020 DISCHARGE DIAGNOSES: 1. Sepsis secondary to Staphylococcus hominis. 2. Diabetes mellitus type 2. 3. Mild hyponatremia, resolved. 4. Acute kidney injury, resolved. 5. Hypertension. CONSULTATIONS: Dr. Valladares from General Surgery. PROCEDURES: 1. Chest x-ray done on admission showed negative exam. 2. Head CT showed chronic appearing ischemic changes but no acute process. 3. Renal ultrasound showed no acute abnormality. 4. Placement of left subclavian central line performed by Dr. Valladares. HOSPITAL COURSE: In brief, this is a 65-year-old, female who presented to the emergency department complaining of nausea vomiting every day. She continued to take her lisinopril and metformin, so when she came in, she had an acute renal failure with creatinine of 4.5, BUN of 79. She was very hyperglycemic on the 460s. We suspected DKA but was basically elevated hyperglycemia only. So with some pushes IV insulin, we were able to control this elevated white cell count. We checked a renal ultrasound to see if there is any chronic changes in the kidney but that was negative and with IV fluids that was getting better. We continued with IV antibiotics stronger to treat pneumonia. The patient was reporting feeling better. At the end of the hospitalization, her renal function returned completely normal. For that blood infection, we will provide Levaquin for 2 weeks and will discharge this patient in stable condition. DISCHARGE PHYSICAL EXAMINATION: Vital signs: Temperature 97.8 degrees, heart rate 92, respiratory rate 20, blood pressure 114/72, O2 saturation 99% on room air. General: This is a 65- year-old, female lying in bed, in no acute distress. Cardiovascular: S1, S2 heard. No murmurs, gallops, or rubs. Regular rate and rhythm. Respiratory: Clear bilaterally to auscultation. No work of breathing or using accessory muscles. Abdomen: Soft, nontender to palpation. Bowel sounds present. No organomegaly. Extremities: No clubbing, cyanosis, or edema. Peripheral pulses present in both legs. Neurological: The patient is alert and oriented x3. DISCHARGE INSTRUCTIONS: 1. Follow up with Dr. Holloway in 2 to 4 weeks. 2. Follow up with Dr. Huynh for right shoulder problems. DISCHARGE MEDICATIONS: 1. Levaquin 750 mg 1 tablet p.o. daily for a couple weeks. 2. Kaufman 5 mg 1 tablet p.o. every 4 hours as needed for pain. We are not going to make any changes to the rest of medical conditions for this patient. Time discharging this patient was 32 minutes. cc: Nguyễn Crabtree MD
== END 2020-02-18 14:13 | disposition home or self-care (01) | DRG 871 ==
LOC: ICU 04:50 → P.ED 04:50 → SUATTDRO 10:22 → 3N 02-15 10:59
PROVIDERS: ATTEND Internal Medicine

== ENCOUNTER 2020-03-06 09:42 | Inpatient (IN) ==
[2020-03-06] MEDS ORDERED: NS 1,000 ML IV ONE ×2 (10:06→12:51)
[2020-03-06] MEDS ORDERED: ZOFRAN IV ONE (10:06)
--- NOTE | 2020-03-06 10:21 | PROVIDER DOCUMENTATION ---
HPI-Abdominal Pain/GI Problem - General Chief Complaint: Nausea/Vomiting Stated Complaint: vomiting Time Seen by Provider: 03/06/20 10:04 Source: patient Allergies/Adverse Reactions: Patient Allergies Allergy/AdvReac Type Severity Reaction Status Date / Time No Known Allergies Allergy Verified 03/06/20 09:53 Home Medications: Home Medication List Medication Instructions Recorded Confirmed Last Taken Type Glipizide 1 tab PO BID 02/12/20 02/12/20 Unknown History Insulin Glargine,Hum.rec.anlog 13 units SUBQ DAILY 02/12/20 02/12/20 Unknown History [Lantus Solostar] Insulin Lispro [Humalog] 1 unit SUBQ DIRECTED 02/12/20 02/12/20 Unknown Histo ry Metformin HCl 1 tab PO BID 02/12/20 02/12/20 Unknown History Hydrocodone/APAP 5 mg/325 mg 1 tab PO Q6H PRN PRN #30 tab 02/18/20 Unknown Rx [[place]-5] Levofloxacin [Levaquin] 750 mg PO DAILY #14 tab 02/18/20 Unknown Rx Pantoprazole [Protonix 40 mg PO BID #60 tab 02/18/20 Unknown Rx [Nonformulary]] - History of Present Illness-ABD Nature of Presenting Problems: Patient is a 65yo BF who presents with complaints of generalized abdominal pain, nausea, vomiting, generalized weakness, and dizziness with change of position for 3 days. Reports she was recently admitted to hospital for diverticulitis, and was discharged 02/18/20. States she started to feel a little better, and symptoms then returned 3 days ago. Patient reports last BM was this morning and was normal. Denies fever, diarrhea, hematemesis, melena, symptoms, flu-like symptoms, CP, or SOB. Upon presentation, patient's BP is 93/61. She reports taking her BP medication this morning. Non-toxic in appearance. Abdominal Pain Onset Location: reports: generalized abdomen Pain Radiation: reports: no radiation Quality of Pain: reports: aching, pressure Severity in ED: reports: mild Onset/Duration: reports: 3 days ago Timing: reports: still present Activities at Onset: reports: none Modifying Factors: improves with: nothing Associated Symptoms: reports: dizziness, nausea, vomiting, weakness (generalized). denies: back/neck pain, chest pain, cough, diarrhea, fever/chills, genitourinary problems, sinus congestion/drainage, shortness of breath Last BM: this morning Dark Stools Present?: reports: none noticed Rectal Bleeding: reports: none Rectal Pain: reports: none Emesis Description: reports: other (undigested food/clear) Bruising or Bleeding Gums?: No Similar Symptoms Previously?: Yes Recently seen or treated by another doctor?: Yes (admitted to hospital 02/13- 02/18/20 for same complaints) Review of Systems - Adult - REVIEW OF SYSTEMS - ADULT Constitutional: reports: see HPI, other (generalized weakness). denies: chills, fever Eyes: reports: no symptoms reported Ears, Nose, Mouth & Throat: denies: sinus problem, throat pain Cardiovascular: denies: chest pain, palpitations Respiratory: denies: cough, shortness of breath Gastrointestinal: reports: see HPI, abdominal pain, nausea, vomiting. denies: hematemesis, diarrhea Genitourinary: denies: dysuria, flank pain Musculoskeletal: denies: back pain, neck pain Integumentary: reports: no symptoms reported Neurological: reports: see HPI, dizziness/vertigo. denies: headache/migraines Psychiatric: reports: no symptoms reported Endocrine: reports: no symptoms reported Past History - Adult - PAST MEDICAL HISTORY-ADULT Review of Records: reports: Old Records Reviewed, Nursing Assessment Review, Medications Reviewed, Social history reviewed & non-contributory. Major Childhood Illnesses: reports: denies history Cardiovascular: reports: HTN, hyperlipidemia Respiratory: reports: denies history Gastrointestinal: reports: denies history Genitourinary: reports: kidney disease Neurological: reports: denies history Psychiatric: reports: anxiety Endocrine/Immune: reports: Diabetes - PRIOR SURGERIES/PROCEDURES Surgical/Procedure History: reports: BTL - IMMUNIZATION STATUS Childhood Immunizations: See Nurse Assessment Flu Vaccine: See Nurse Assessment - FAMILY HISTORY Family History: reviewed, not pertinent - SOCIAL HISTORY Smoking: denies, non-smoker Physical Exam-General - PHYSICAL EXAM-ADULT Initial Vital Signs Reviewed: Yes (BP 93/61) - CONSTITUTIONAL General Appearance: alert, mild distress. negative: lethargic, slow to respond, obtunded - EYES Eyes: PERRL/EOMI, pink conjunctivae. negative: EOM palsy, scleral icterus - HEAD, EARS, NOSE, MOUTH & THROAT HENMT: normocephalic/atraumatic. negative: moist mucous membranes (dry) - NECK Neck: non-tender, full range of motion, supple, normal inspection - RESPIRATORY Respiratory: chest non-tender, lungs clear, normal breath sounds, no pleuratic chest pain, no respiratory distress, no accessory muscle use. negative: crackles, rales, rhonchi, stridor, wheezing, retractions, splinting - CARDIOVASCULAR Cardiovascular: regular rate, rhythm, no gallop - GASTROINTESTINAL (ABDOMEN) Abdominal Exam: normal bowel sounds, soft, tenderness (diffusely tender to palpation (worse epigastric region)). negative: distended, guarding, Rovsing's sign - MUSCULOSKELETAL Back Exam: normal inspection Extremity: normal range of motion, normal inspection - SKIN Integumentary: normal color, warm/dry. negative: cyanosis, jaundice, pallor - NEUROLOGIC Neurologic: grossly normal. negative: aphasia, EOM palsy, focal weakness, motor weakness - PSYCHIATRIC Psych/Mental Status: normal mood/affect, normal thought content, normal thought process, oriented x 3 Progress - PLAN OF CARE/RESULTS Progress/Plan/Lab Results: Vital Signs - 8 hr 03/06/20 09:48 Temperature 97.8 F Pulse Rate 89 Respiratory Rate 18 Blood Pressure 93/61 O2 Sat by Pulse Oximetry 100 Orders Category Date Time Status ED: Orthostatic Vital Signs (ER use this DIRECTED Care 03/06/20 10:07 Active NEWS Score 2-4:Order NEWS Lactate Series NOW Care 03/06/20 09:53 Active Saline Loc DIRECTED Care 03/06/20 09:55 Active NPO Diet 03/06/20 09:55 Active ACETONE SERUM [CHEM] Stat Lab 03/06/20 10:06 Uncollected AMYLASE [CHEM] Stat Lab 03/06/20 09:55 Ordered CBC WITH ELECTRONIC DIFF [HEME] Stat Lab 03/06/20 09:55 Ordered COMPREHENSIVE METABOLIC PANEL [CHEM] Stat Lab 03/06/20 09:55 Uncollected LACTATE, PLASMA [CHEM] Lab 03/06/20 10:00 Uncollected LACTATE, PLASMA [CHEM] Lab 03/06/20 13:00 Uncollected LACTATE, PLASMA [CHEM] Lab 03/06/20 16:00 Uncollected LIPASE [CHEM] Stat Lab 03/06/20 09:55 Uncollected URINALYSIS W/POSS RFLX CULT [URINALYSIS] Stat Lab 03/06/20 09:55 Uncollected 0.9% Sodium Chloride Inj [Ns] 1,000 ml Med 03/06/20 10:06 Active IV 999 mls/hr Ondansetron [Zofran] Med 03/06/20 10:06 Discontinued 4 mg IV NOW ONE 1028: 2 RNs unable to obtain IV. Dr. Perea at bedside placing EJ. 1136: After numerous IV/EJ attempts, blood able to be drawn, however no line able to be placed. Dr. Perea recommends obtaining non-contrast CT scan abdomen/pelvis, and if findings suggest need for admission, will place central line. At this time, patient is hemodynamically stable. 1210: CT shows no acute findings. Labs demonstrate RASHI. Patient has dry mucus membranes and appears dehydrated from vomiting. Lab results, imaging results, plan of care, and need for admission discussed with patient who agrees with and verbalizes understanding. Will page Hospitalist for admission. 1214: Dr. Sellers has accepted patient for admission. Dr. Perea is at bedside obtaining patient consent for Central Line Placement. Result Diagrams: 03/06/20 11:30 03/06/20 11:30 - XRAY 1 XRAY: Bilateral XRAY Study: Chest Impression: See EMR Report ([facility] - [address] [place] [address] [place], [place] [id number] [place] [address] [address] [place] [address] Department of Imaging Patient: [facility] Date: 03/06/20#: [id number] : 1955DM Status: REG ERAcct#: [id number] Age/Sex: 65/FRoom/Bed: Loc: P.ED Ordering Physician: Bette Perea MD Family Physician: None,PCP Reason for Procedure: verify placement of central line ___ Signed EXAM: CHEST-PORTABLE HISTORY: verify placement of central line TECHNIQUE: Single view COMPARISON: 02/17/2020 FINDINGS: The lungs are well expanded. There is now a right subclavian catheter. Tip overlies the right atrium. No pneumothorax. The heart is not enlarged. The vessels are not distended. There are no infiltrates. No effusion identified. IMPRESSION: No postprocedural pneumothorax. Electronically signed by Prasanna Edmond 03/06/2020 1:09 PM 03/06/20 1309 Interpreting Physician: Prasanna Edmond MD Dictated Date/Time: 03/06/20 1307 cc: Bette Perea MD; None,PCP) - CT/MRI 1 CT Study: Abdomen, Pelvis Impression: See EMR Report ([facility] - [address] , [address], [place] [address] [facility] - [address] [place] [address] Department of Imaging Patient: [facility] Date: 03/06/20MR#: [id number] : 1955DM Status: REG ERAcct#: [id number] Age/Sex: 65/FRoom/Bed: Loc: P.ED Ordering Physician: Tiny Chapa Family Physician: None,PCP Reason for Procedure: Abdominal pain; n/v; hx diverticulitis Signed EXAM: CT ABDOMEN/PELVIS W/O CONTRAST HISTORY: Abdominal pain; n/v; hx diverticulitis TECHNIQUE: CT abdomen and pelvis without oral or intravenous contrast COMPARISON: None. FINDINGS: No focal hepatic normality identified on this noncontrasted exam. No splenomegaly. No inflammation about the pancreas. No calcified gallstones. Normal adrenal glands. No renal stones. No hydronephrosis. Normal aorta. No bowel obstruction. Normal appendix. No abscess. The urinary bladder is only mildly distended. Normal uterus. No pelvic mass. IMPRESSION: No acute abnormality identified. This exam was performed using automated exposure control, adjustment of mA or kV according to patient size, and/or use of iterative reconstruction technique. Electronically signed by Prasanna Edmond 03/06/2020 12:03 PM 03/06/20 1203 Interpreting Physician: Prasanna Edmond MD Dictated Date/Time: 03/06/20 1201 cc: Tiny Chapa; None,PCP) - CONSULTS/PCP/HOSPITALIST Notification #1 *Consult/PCP/Hospitalist*: Dr. Sellers, Hospitalist Time Discussed: 12:14 Reason/Comments: N/V; dehydration; RASHI; generalized weakness Consult Disposition: Will see in ED, Admit Procedures - CENTRAL LINE Consent Form Signed?: Yes Time-Out Verification Completed?: Yes Central Line Lumen: triple Central Line Procedure Prep: Hand Hygeine Performed, Chloraprep Patient Position (To prevent Air Embolism): Trendelenburg (SC/IJ) Central Line Position: subclavian (R) Ultrasound Guided?: No Hat, mask, sterile gown, & sterile gloves worn by physician?: Yes Site scrubbed vigorously for 30 seconds? (Groin: 2 min): Yes Anesthetic: 1%, Lidocaine/Xylocaine Volume of Anesthetic (ml's): 4 Post Procedure: Sutured in place, Sterile field maintained, Sterile dressing applied, Blood aspirated from each lumen, Placement verfied by XRAY Complications: none Procedure Comment: Performed by Dr. Perea Departure - Departure Date of Disposition Decision: 03/06/20 Time of Disposition Decision: 12:14 DIAGNOSIS: Dehydration, Acute kidney injury, Hyperglycemia, Generalized weakness, Orthostasis Nausea and vomiting Qualifiers: Vomiting type: unspecified Vomiting Intractability: unspecified Qualified Code(s): R11.2 - Nausea with vomiting, unspecified Disposition: ADMITTED INPATIENT 09 Certified Medical Emergency: Emergent Condition: Stable Referrals and Follow-Ups: None,PCP [Primary Care Provider] - - Critical Care Note This patient required my direct & personal management of CC.: No Attestation - Physician/ CANDIDO Attestation Patient care was provided by Advanced Practice Provider:: Yes Advanced Practice Provider:: Chapa,Tiny A. Advanced Practice Provider documentation review:: The Mid-level provider documentation, treatment plan and medical decision making was reviewed by the physician who agrees with all treatment and medical decision making by the MLP. The physician spent face to face time with patient:: Yes (Ho) Advanced Practice Provider documentation review:: Supervising physician onsite and consulted in the evaluation and care of this patient. The physician did have a face to face encounter with the patient.
[2020-03-06 11:39] LABS: BASO# 0.02 X1000 (0.0-0.2); BASO% 0.4 % (0.0-0.8); EOS# 0.07 X1000 (0.0-0.7); EOS% 1.3 % (0.0-10.0); HEMATOCRIT 31.8 % (37.0-47.0); HEMOGLOBIN 9.9 g/dL (12.0-16.0); LYMPH% 26.4 % (20.5-51.1); MCH 27.3 PG (27-31); MCHC 31.1 g/dL (33-37); MCV 87.6 FL (81-99); MONO# 0.52 X1000 (0.11-0.59); MONO% 9.8 % (1.7-9.3); MPV 11.4 FL (7.4-10.4); NEUT% 62.1 % (42.2-75.2); PLT 143 X1000 (130-400); RBC 3.63 XMIL (4.2-5.4); RDW 13.9 % (11.5-14.5); WBC 5.31 X1000 (4.8-10.8)
[2020-03-06 11:54] LABS: ACETONE SERUM NEGATIVE (NEGATIVE)
[2020-03-06 12:01] LABS: AGAP 19; ALBUMIN 4.1 g/dL (3.5-5.0); ALKALINE PHOSPHATASE 45 U/L (32-104); BUN 41 mg/dL (8-22); CALCIUM 9.2 mg/dL (8.8-10.2); CHLORIDE 99 mmol/L (98-107); COSMO 292; CREATININE 3.4 mg/dL (0.5-0.9); ESTIMATED GFR 13; GLUCOSE 215 mg/dL (70-104); GOT 19 U/L (10-30); GPT 9 U/L (10-36); LIPASE 31 U/L (13-60); POTASSIUM 4.5 mmol/L (3.5-5.1); SODIUM 138 mmol/L (136-145); TCO2 20 mmol/L (25-35); TOTAL PROTEIN 6.5 g/dL (6.3-8.3)
--- NOTE | 2020-03-06 12:06 | Diag Imaging Result Doc PS360 ---
EXAM: CT ABDOMEN/PELVIS W/O CONTRAST HISTORY: Abdominal pain; n/v; hx diverticulitis TECHNIQUE: CT abdomen and pelvis without oral or intravenous contrast COMPARISON: None. FINDINGS: No focal hepatic normality identified on this noncontrasted exam. No splenomegaly. No inflammation about the pancreas. No calcified gallstones. Normal adrenal glands. No renal stones. No hydronephrosis. Normal aorta. No bowel obstruction. Normal appendix. No abscess. The urinary bladder is only mildly distended. Normal uterus. No pelvic mass. IMPRESSION: No acute abnormality identified. This exam was performed using automated exposure control, adjustment of mA or kV according to patient size, and/or use of iterative reconstruction technique. Electronically signed by Prasanna Edmond 03/06/2020 12:03 PM
[2020-03-06] MEDS ORDERED: ZOFRAN IM ONE (12:10)
[2020-03-06] MEDS ORDERED: ZOFRAN IV PRN (12:52)
[2020-03-06] MEDS ORDERED: TYLENOL PO PRN (12:52)
--- NOTE | 2020-03-06 13:12 | Diag Imaging Result Doc PS360 ---
EXAM: CHEST-PORTABLE HISTORY: verify placement of central line TECHNIQUE: Single view COMPARISON: 02/17/2020 FINDINGS: The lungs are well expanded. There is now a right subclavian catheter. Tip overlies the right atrium. No pneumothorax. The heart is not enlarged. The vessels are not distended. There are no infiltrates. No effusion identified. IMPRESSION: No postprocedural pneumothorax. Electronically signed by Prasanna Edmond 03/06/2020 1:09 PM
--- NOTE | 2020-03-06 13:37 | ED EKG INTERP ---
EKG Interpretation - EKG Time of EKG reading by physician:: 13:28 EKG Read and Signed by:: Bette Perea EKG Interpretation (*Must complete 3 of following elements*): Normal Rate: 84 Rhythm: NSR [place]: normal QRS: normal NH Interval: normal ST Wave: normal Attestation - Physician/ CANDIDO Attestation Patient care was provided by Advanced Practice Provider:: Yes Advanced Practice Provider:: Tiny Chapa Advanced Practice Provider documentation review:: The Mid-level provider documentation, treatment plan and medical decision making was reviewed by the physician who agrees with all treatment and medical decision making by the MLP. The physician spent face to face time with patient:: Yes Advanced Practice Provider documentation review:: Supervising physician onsite and consulted in the evaluation and care of this patient. The physician did have a face to face encounter with the patient.
[2020-03-06] MEDS: ZOSYN 3.375 GM in NS 50 ML IV SCH ×2 (13:40→18:16)
--- NOTE | 2020-03-06 13:44 | EKG Report ---
Test Performed on : 03/06/2020 1:28:45 PM Test Reason : Epigastric pain Blood Pressure : / mmHG Vent. Rate : 084 BPM Atrial Rate : 084 BPM P-R Int : 146 ms QRS Dur : 072 ms QT Int : 386 ms P-R-T Axes : 055 049 039 degrees QTc Int : 456 ms Normal sinus rhythm. Normal ECG When compared with ECG of 13-FEB-2020 06:48, Nonspecific T wave abnormality, improved in Inferior leads Nonspecific T wave abnormality no longer evident in Anterolateral leads Unconfirmed Result
[2020-03-06] MEDS: NS 1,000 ML IV SCH (15:35)
--- NOTE | 2020-03-06 18:33 | HISTORY AND PHYSICAL ---
CHIEF COMPLAINT: Nausea and vomiting. HISTORY OF PRESENT ILLNESS: The patient is a 65-year-old black female who presented to the emergency department complaining of generalized abdominal pain, nausea, vomiting, generalized weakness. States she was just in the hospital and discharged on the . She was admitted with volume depletion. Creatinine was elevated at 4.3, was completely back to normal at 0.7 on discharge. The patient notes after going home she has had a decreased oral intake. States that she thinks she may be allergic to something at her house. Regardless, she is back with abdominal pain, nausea, and decreased oral intake. ALLERGIES: No known drug allergies. MEDICATIONS: Glipizide, insulin, Humalog, metformin, hydrocodone p.r.n., Levaquin which she has finished for her recent diverticulitis. PAST MEDICAL HISTORY: Significant for diabetes, chronic kidney disease, hypertension, hyperlipidemia. She has had a history of a BTL. REVIEW OF SYSTEMS: As noted above. Patient notes that after going home she was back to her usual self, was eating and drinking. States that she does not realize if she has decreased oral intake. Denies any chest pain or palpitation. Denies any fevers, chills. Denies any dysuria. Denies headaches, blurry vision. SOCIAL HISTORY: She is a nonsmoker. Lives at home. Does not drink. FAMILY HISTORY: Noncontributory. PHYSICAL EXAMINATION: VITAL SIGNS: Reviewed. Temp 97 degrees, pulse 89, respiratory rate 18, BP 103/61, saturation 100% on room air. GENERAL: Patient is awake, pleasant. She is in no current respiratory distress. HEENT: Normocephalic. NECK: Supple. CARDIOVASCULAR: Regular rate. CHEST: Clear, nonlabored. ABDOMEN: Soft, nondistended. EXTREMITIES: Moves all extremities. ASSESSMENT: 1. Hypotension. 2. Acute volume depletion. 3. Acute renal failure with creatinine elevated at 3.4. 4. Hyperglycemia in a patient with known history of diabetes. PLAN: We are going to admit to the hospital, IV fluids. Hold her insulin. Hold her Glucophage due to her creatinine. Hold her glipizide due to not eating and will follow. CT abdomen was negative for diverticulitis or colitis. cc: Geovanny Sellers MD
[2020-03-06 19:48] LABS: URINE SOURCE CLEAN CATCH
[2020-03-06 19:51] LABS: BILIRUBIN URINE NEGATIVE (NEGATIVE); BLOOD URINE NEGATIVE (NEGATIVE); COLOR STRAW; GLUCOSE URINE NEGATIVE (NEGATIVE); KETONE URINE NEGATIVE (NEGATIVE); LEUKOCYTES URINE NEGATIVE (NEGATIVE); NITRITE URINE NEGATIVE (NEGATIVE); PH URINE 5.5; PROTEIN URINE NEGATIVE (NEGATIVE); SP GRAVITY URINE 1.016; TURBIDITY URINE CLEAR (CLEAR); UROBILINOGEN URINE NORMAL (NORMAL)
[2020-03-06 19:52] LABS: UR EPITHELIAL CELLS <10 /HPF (<10); URINE BACTERIA NEGATIVE /HPF; URINE RBC <10 /HPF (<10); URINE WBC <10 /HPF (<10)
[2020-03-07] MEDS: ZOSYN 3.375 GM in NS 50 ML IV SCH ×3 (00:17→13:46)
[2020-03-07] MEDS: NS 1,000 ML IV SCH ×2 (06:08→18:10)
[2020-03-07 06:58] LABS: HEMATOCRIT 27.3 % (37.0-47.0); HEMOGLOBIN 8.4 g/dL (12.0-16.0); MCH 27.6 PG (27-31); MCHC 30.8 g/dL (33-37); MCV 89.8 FL (81-99); MPV 12.6 FL (7.4-10.4); RBC 3.04 XMIL (4.2-5.4); RDW 13.7 % (11.5-14.5); WBC 4.78 X1000 (4.8-10.8)
[2020-03-07 07:11] LABS: ALBUMIN 3.3 g/dL (3.5-5.0); CALCIUM 8.4 mg/dL (8.8-10.2); CREATININE 1.9 mg/dL (0.5-0.9); MAGNESIUM 1.2 mg/dL (1.5-2.7); POTASSIUM 3.9 mmol/L (3.5-5.1); TOTAL BILIRUBIN 0.3 mg/dL (0.20-1.00); TOTAL PROTEIN 5.6 g/dL (6.3-8.3)
[2020-03-07] MEDS ORDERED: BLISTEX MEDICATED BERRY LIP BALM TOP PRN (20:03)
[2020-03-07] MEDS: ZOSYN 2.25 GM in NS 50 ML IV SCH (21:05)
[2020-03-08] MEDS: ZOSYN 2.25 GM in NS 50 ML IV SCH ×3 (04:38→20:53)
[2020-03-08] MEDS: NS 1,000 ML IV SCH ×2 (12:25→12:26)
[2020-03-08 14:17] LABS: OCCULT BLOOD 1 NEGATIVE (NEGATIVE)
--- NOTE | 2020-03-09 00:07 | PROGRESS NOTE ---
DATE: 03/08/2020 SUBJECTIVE: The patient notes overall she is much better. Thinks she may have had some blood in her stool earlier today. PHYSICAL EXAMINATION: Vital signs: Temperature 97.5 degrees, pulse 77, respiratory rate 18, BP 121/61. General: Patient is awake, pleasant. No respiratory distress. HEENT: Normocephalic. Neck: Supple. Cardiovascular: Regular rate. Chest: Clear, nonlabored. Abdomen: Soft, diffusely tender. Extremities: Moves all extremities. Neurologic: No changes. ASSESSMENT: 1. Hypokalemia, improved. 2. Acute renal failure. Creatinine was elevated at 3.4 on admit, currently down to 1.9 due to volume depletion. 3. Acute volume depletion. 4. History of colitis. PLAN: We will continue patient in the hospital. We will restart IV fluids. Continue clear liquids. She certainly needs a colonoscopy and possibly an EGD. However, due to the state of coronavirus, COVID-19, this was not performed during the last hospitalization. Hopefully, this can be performed during this hospitalization to appropriately treat the patient. cc: Geovanny Sellers MD [facility]
[2020-03-09] MEDS: ZOSYN 2.25 GM in NS 50 ML IV SCH ×3 (06:05→20:14)
[2020-03-09] MEDS: NS 1,000 ML IV SCH ×2 (06:13→06:14)
[2020-03-09 06:22] LABS: HEMOGLOBIN 9.3 g/dL (12.0-16.0); MCH 27.5 PG (27-31); MCV 88.8 FL (81-99); RBC 3.38 XMIL (4.2-5.4); RDW 13.2 % (11.5-14.5); WBC 4.5 X1000 (4.8-10.8)
[2020-03-09 06:40] LABS: AGAP 12; ALBUMIN 3.7 g/dL (3.5-5.0); ALKALINE PHOSPHATASE 41 U/L (32-104); BUN 7 mg/dL (8-22); CHLORIDE 102 mmol/L (98-107); COSMO 285; CREATININE 0.7 mg/dL (0.5-0.9); ESTIMATED GFR > 60; GLUCOSE 266 mg/dL (70-104); GOT 21 U/L (10-30); GPT 10 U/L (10-36); POTASSIUM 3.8 mmol/L (3.5-5.1); SODIUM 139 mmol/L (136-145); TCO2 25 mmol/L (25-35); TOTAL PROTEIN 6.2 g/dL (6.3-8.3)
[2020-03-09 06:41] LABS: MAGNESIUM 0.9 mg/dL (1.5-2.7)
[2020-03-09] MEDS ORDERED: MAGNESIUM SULFATE 2 GM/S.W.I. 2 GM/50 ML IVPB IV ONE (07:33)
--- NOTE | 2020-03-09 09:47 | Diag Imaging Result Doc PS360 ---
EXAM: CT ABD/PELVIS W/PO AND IV CON HISTORY: colitis TECHNIQUE: CT abdomen and pelvis with oral and intravenous contrast COMPARISON: 03/06/2020 FINDINGS: The gallbladder is contracted. Likely mild fatty infiltration of the liver. Normal spleen, pancreas, adrenal glands, and kidneys. There may be a small amount of scarring to the left kidney. Normal aorta. Normal appendix. No abscess. No bowel obstruction. No inflammation about the bowel loops. The urinary bladder is distended and appears normal. Uterus is small. Neither ovary is enlarged. IMPRESSION: No CT evidence of colitis This exam was performed using automated exposure control, adjustment of mA or kV according to patient size, and/or use of iterative reconstruction technique. Electronically signed by Prasanna Edmond 03/09/2020 9:45 AM
--- NOTE | 2020-03-09 21:33 | PROGRESS NOTE ---
DATE: 03/09/2020 SUBJECTIVE: Patient notes she is doing a lot better. Denies any abdominal pain, nausea. Denies fevers or chills currently. PHYSICAL EXAMINATION: Vital Signs: Temperature 97.5, pulse 77, respiratory rate 18, BP 120/61. General: Patient is awake, pleasant, no distress. HEENT: Normocephalic. Neck: Supple. Cardiovascular: Regular rate. Chest: Clear. Abdomen: Soft. Minimal tenderness. Extremities: Moves all extremities. Neurologic: No changes. ASSESSMENT: 1. Acute on acute renal failure, resolved. Creatinine 3.4 admit. Currently 0.7. 2. Hypomagnesemia. Will replace. 3. Anemia of chronic disease. 4. Colitis. 5. Acute volume depletion, resolved. 6. Diabetes. PLAN: We will continue patient in the hospital. Check CT of the abdomen. Replace magnesium, Hemoccult stools and will follow. cc: Geovanny Sellers MD
[2020-03-10] MEDS: ZOSYN 2.25 GM in NS 50 ML IV SCH (05:17)
[2020-03-10 06:23] LABS: HEMATOCRIT 30.5 % (37.0-47.0); HEMOGLOBIN 9.3 g/dL (12.0-16.0); MCHC 30.5 g/dL (33-37); MCV 88.4 FL (81-99); MPV 11.7 FL (7.4-10.4); RBC 3.45 XMIL (4.2-5.4); RDW 13.2 % (11.5-14.5); WBC 4.08 X1000 (4.8-10.8)
[2020-03-10 07:11] LABS: AGAP 13; ALBUMIN 3.8 g/dL (3.5-5.0); ALKALINE PHOSPHATASE 44 U/L (32-104); BUN 4 mg/dL (8-22); CALCIUM 8.9 mg/dL (8.8-10.2); CHLORIDE 102 mmol/L (98-107); COSMO 282; CREATININE 0.8 mg/dL (0.5-0.9); ESTIMATED GFR > 60; GLUCOSE 276 mg/dL (70-104); GOT 17 U/L (10-30); GPT 9 U/L (10-36); MAGNESIUM 1.2 mg/dL (1.5-2.7); POTASSIUM 3.8 mmol/L (3.5-5.1); SODIUM 138 mmol/L (136-145); TCO2 23 mmol/L (25-35); TOTAL PROTEIN 6.1 g/dL (6.3-8.3)
[2020-03-10 07:54] VITALS: BP 131/65
[2020-03-10 07:56] LABS: OCCULT BLOOD 1 NEGATIVE (NEGATIVE)
--- NOTE | 2020-03-10 11:56 | DISCHARGE SUMMARY ---
ADMISSION DATE: 03/06/2020 DISCHARGE DATE: 03/10/2020 DISCHARGE DIAGNOSES: 1. Hypotension, resolved. 2. Acute kidney injury due to volume depletion, resolved. Creatinine 3.4 on admit and 0.8 on discharge. 3. Hypomagnesemia, resolved. 4. Diabetes with mild hyperglycemia. 5. Anemia with hemoglobin and hematocrit stable at 9 and 30. CONSULTATIONS: None. PROCEDURES: None. BRIEF HOSPITAL COURSE: The patient is a 65-year-old female who presented to the ER in acute renal failure. She had just been in the hospital with very similar issues. At that time her CT showed colitis. Colonoscopy was not performed during the last admission or for this admission due to State regulations for COVID-19. However, this time her CT was completely negative. We did wait until after her creatinine improved, therefore, we could use contrast. She was initially admitted to the hospital, placed on antibiotics, Zosyn, and IV fluids. Creatinine continued to improve. Her diet was advanced. Her IV fluids were held for 24 hours and her creatinine continued to stay normal. She continued to drink okay, continued to have good urine output. DISPOSITION: Discussed with patient and her aunt over the phone that she needs to follow up as outpatient once the state allows her to have a colonoscopy. She needs to continue to drink to make sure that her urine stays clear. She has no restrictions on diet or activity otherwise. However, I certainly feel as though poor volume intake was the cause of her current and previous symptoms. She has had no diarrhea, nausea or vomiting during this hospital stay. She is eating well and, therefore, she will be discharged home. TIME SPENT: Greater than 30 minutes was spent on total care. cc: Geovanny Sellers MD
== END 2020-03-10 12:04 | disposition home or self-care (01) | DRG 684 ==
LOC: P.ED 09:42 → P.MEDSURG 13:12 → SUATTDRO 13:12
PROVIDERS: ATTEND Family Medicine